=== PATIENT | male | born 1990 | race Two or more races ===

== ENCOUNTER 2023-09-13 10:40 | Emergency (ER) | payer OTHER ==
[~2023-09-13] VITALS: Ht 170.2 cm; Wt 59.0 kg
[2023-09-13] MEDS ORDERED: ACETAMINOPHEN 500 MG GEL..CAP PO ONE (11:45)
[2023-09-13 12:17] LABS: HEMATOCRIT 44.5 % (39.0-48.0); HEMOGLOBIN 15.1 g/dL (13-16.00); MEAN CELL VOLUME 96.6 fL (80.0-100.00); MEAN CORPUSCULAR HEMOGLOBIN 32.8 pg (27.00-32.0); MEAN CORPUSCULAR HGB CONC 33.9 g/dl (32.0-36.0); RED BLOOD COUNT 4.61 M/uL (4.00-6.00)
[2023-09-13 12:42] LABS: PLATELET COUNT 86 K/uL (150-450)
[2023-09-13] MEDS ORDERED: DEXAMETHASONE SODIUM PHOSPHATE 4 MG/ML VIAL IM ONE (13:00)
== END 2023-09-13 13:16 | disposition home or self-care (01) ==
LOC: ER 10:41
PROVIDERS: General Practice
DX: A90 Dengue fever [classical dengue] (principal); Z20.822 Contact with and (suspected) exposure to COVID-19